=== PATIENT | male | born 1985 | race Caucasian/White ===

== ENCOUNTER → 2019-01-07 | Outpatient (CLI) | payer BC ==
[~2019-01-07] MED LIST: AMOXICILLIN 8751 TAB PO; INDOCIN50 MG PO
== END ==
LOC: COL.RAD 07:30
DX: E83.119 Hemochromatosis, unspecified (principal)

== ENCOUNTER → 2021-01-05 | Outpatient (CLI) | payer BC ==
[~2021-01-05] VITALS: Ht 182.9 cm; Wt 94.1 kg
[~2021-01-05] MED LIST changes: +LEXAPRO20 MG PO; +SYNTHROID0.088 MG/T PO; +TOPAMAX50 MG PO
[2021-01-05 09:59] VITALS: BP 144/86; PULSE 59
[2021-01-05 11:00] VITALS: BP 136/89; PULSE 59
== END ==
LOC: COL.RAD 09:30
DX: M54.5 Low back pain (principal)
CPT/HCPCS: J3301; Q9965